=== PATIENT | female | born 1985 | race Caucasian/White ===

== ENCOUNTER 2023-04-21 01:29 | Emergency (ER) | payer OTHER, SELFPAY ==
[2023-04-21] VITALS (30 sets, daily range): BP systolic 87–138; BP diastolic 54–95; PULSE 44–81; RESP 11–25; TEMP 36.3–37; O2SAT 97–100
--- NOTE | ~2023-04-21 | XR_ITS ---
EXAMINATION: XR chest 1V portable DATE: 04/21/2023 08:36 INDICATION: Overdose of beta blockers. TECHNIQUE: A single frontal view of the chest was obtained. COMPARISON: Chest 2 views 06/24/2011 FINDINGS: There is no pneumonia, pleural effusion, or pneumothorax. The heart size is normal. IMPRESSION: 1. No acute cardiopulmonary disease. Reviewed, dictated and finalized at location E. UETTE OPERATOR
--- NOTE | 2023-04-21 01:33 | ECG_ITS ---
Measurements Intervals [place] Rate: 66 P: 52 AL: 150 QRS: 49 QRSD: 90 T: 36 QT: 412 QTc: 432 Interpretive Statements SINUS RHYTHM NORMAL ECG NO PREVIOUS ECG AVAILABLE FOR COMPARISON Electronically Signed On 04-21-2023 6:40:52 PROCESS STEWARD by Leonid Garcia D.O.
--- NOTE | 2023-04-21 01:33 | ED.PSYCH ---
HPI - Psych General Chief Complaint: Overdose Stated Complaint: overdose Time Seen by Provider: 04/21/23 01:32 Source: patient Mode of arrival: ambulatory Limitations: no limitations History of Present Illness HPI Narrative: 37-year-old female with a history of depression overdosed on an unknown amount of propanolol 20 mg 40 minutes ago. She stated that she took a handful of the pills. She does not have any other co ingestants. The patient has been asymptomatic. After taking the medications the patient's mother called EMS who brought her to the ER. MD complaint: suicidal ideation and feels depressed Onset (ago): minute(s) ( 40 minutes ago) Associated psychiatric symptoms: depression Associated symptoms: denies other symptoms Treatments prior to arrival: none Related Data Home Medications Medication Instructions Recorded Confirmed propranolol 20 mg tablet 20 mg PO TID 04/21/23 04/21/23 Allergies Allergy/AdvReac Type Severity Reaction Status Date / Time No Known Allergies Allergy Unverified 07/08/14 21:03 Exam Const: General: no acute distress Orientation/consciousness: patient oriented x3 Limitations: no limitations HENMT: Head: normal to inspection Ears: external ears normal Face/Nose/Sinus: Normal external nose present Face and sinus: normal facial exam Mouth: Yes Normal oral and palatal mucosa present Throat: posterior oropharynx normal Eyes: Conjunctivae: conjunctivae normal Pupils: Equal, round and reactive pupils present EOM: EOMs intact bilaterally Direct Ophthalmoscopy: no photophobia Neck: Neck: normal visual inspection, no lymphadenopathy and no meningeal signs Chest: Chest palpation & inspection: normal inspection of the chest Resp: Effort & Inspection: normal respiratory effort Auscultation: clear to auscultation bilaterally Cardio: Rate: regular rate Rhythm: regular rhythm GI: GI Palp: Yes Soft to palpation Auscultation: normal bowel sounds : General: Yes no CVA tenderness Back/Spine/Pelvis: Back: no CVA tenderness Skin: General skin exam: normal color Rashes: no rashes Wounds: no wounds Neuro: General: patient oriented x3, moves all extremities, no meningeal signs, no focal motor deficits and CN's II-XI intact bilaterally Cranial nerves: Yes Nystagmus not present Speech: normal speech Extrem: General: normal to inspection, no clubbing, cyanosis or edema and no pedal edema Psych: Mental Status: mental status grossly normal Affect: normal affect Attitude: cooperative Course Course Emergency Course: propanolol overdosage- Patient is asymptomatic. Heart rate is 59. Blood pressure is stable. QRS duration is 90 milliseconds. initial blood sugar 108. Called poison Control case [id number] marijuana use/ amphetamine abuse discussed with poison control. If the patient stays stable( normal blood pressure and heart rate greater than 50) can clear her medically after 6 hours. The patient was noted to be restless for which we prescribed 0.5 mg of Xanax. Throughout the night the patient has had stable heart rate and blood pressure repeat blood work was noted to be unremarkable. The repeat EKG revealed a heart rate of 51. With a QRS of 76 and a QTC corrected of 410. patient is medically cleared for psych evaluation Vital Signs Vital signs: Vital Signs Temperature 36.4 C 04/21/23 01:29 Pulse Rate 64 04/21/23 01:29 Respiratory Rate 12 04/21/23 01:29 Blood Pressure 130/93 H 04/21/23 01:29 Pulse Oximetry 100 04/21/23 01:29 Oxygen Delivery Room Air 04/21/23 01:29 Temperature 36.4 C 04/21/23 01:29 Pulse Rate 57 L 04/21/23 06:33 Respiratory Rate 18 04/21/23 06:33 Blood Pressure 92/62 L 04/21/23 06:33 Pulse Oximetry 99 04/21/23 06:33 Oxygen Delivery Room Air 04/21/23 06:33 MDM - Psych MDM Narrative Medical decision making narrative: propanolol overdose amphetamine abuse suicidal overdose Differential Diagnosis
[2023-04-21 01:45] LABS: Glucose Point of Care 108 mg/dl (65-105)
[2023-04-21 01:53] LABS: Basophils Absolute Auto 0.03 K/mm3 (0.00-0.10); Basophils Percent Auto 0.3 % (0.0-1.0); Eosinophils Absolute Auto 0.07 K/mm3 (0.02-0.50); Eosinophils Percent Auto 0.7 % (1.0-6.0); Hematocrit 37.9 % (35.0-49.0); Hemoglobin 12.9 g/dL (12.0-15.0); Immature Granulocyte Absolute 0.03 K/mm3 (0.00-0.00); Immature Granulocyte Percent A 0.3 % (0.0-0.0); Lymphocytes Absolute Auto 4.02 K/mm3 (1.10-4.50); Mean Corpuscular Hemoglobin 30.2 pg (27.0-31.0); Mean Corpuscular Volume 88.8 fL (78.0-102.0); Mean Platelet Volume 10.5 fl (9.2-11.8); Monocytes Absolute Auto 0.69 K/mm3 (0.10-0.90); Monocytes Percent Auto 6.5 % (2.0-11.0); Neutrophils Absolute Auto 5.7 K/mm3 (1.7-7.2); Neutrophils Percent Auto 54.2 % (50.0-70.0); Platelet Count Result 319 K/mm3 (150-420); Red Blood Count 4.27 M/mm3 (4.20-5.40); White Blood Count 10.6 K/mm3 (4.8-10.8)
[2023-04-21 02:01] LABS: Appearance Urine Clear (Clear); Bilirubin Urine 1+ (Negative); Blood Urine 1+ (Negative); Color Urine Yellow (Yellow); Glucose Urine UA Negative (Negative); Ketones Urine 2+ (Negative); Leukocyte Esterase Ur Trace LEU/UL (Negative); Nitrate Urine Negative (Negative); Protein Urine Trace (Negative); Specific Grav Ur >= 1.030 (1.010-1.020); Urobilinogen Urine 0.2 mg/dL (0.2-1.0); pH Urine 6.5 (5.0-8.0)
[2023-04-21 02:05] LABS: Pregnancy On Board Control Positive; Urine Pregnancy Test Negative
[2023-04-21 02:09] LABS: Add Urine Microscopic? YES; RBC Urine 0-2 /hpf (0-2); Squamous Epithelial Cell Urine Many /hpf (Few)
[2023-04-21 02:10] LABS: Amorphous Sediment Urine Moderate; Amphetamine Screen Urine Positive (Negative); Bacteria Urine 1+ /hpf; Barbiturate Screen Urine Negative (Negative); Benzodiazepines Screen Urine Negative (Negative); Cannabinoid Screen Urine Positive (Negative); Cocaine Screen Urine Negative (Negative); Methadone Screen Urine Negative (Negative); Mucus Urine Few /lpf; Opiate Screen Urine Negative (Negative); Phencyclidine Screen Urine Negative (Negative)
[2023-04-21] MEDS: CHARCOAL ACTIVATED LIQUID 25 GM/120 ML BOTTLE 50 GM PO (02:15)
[2023-04-21 02:22] LABS: Alanine Aminotransferase 19 U/L (14-59); Albumin Level 3.7 g/dL (3.4-5.0); Alkaline Phosphatase 50 U/L (46-116); Anion Gap 12 mmol/L (8-16); Aspartate Amino Transferase < 10 U/L (15-37); Bilirubin,Total 0.4 mg/dL (0.00-1.00); Blood Urea Nitrogen 9 mg/dL (7-18); Calcium 8.7 mg/dL (8.5-10.1); Carbon Dioxide 26 mmol/L (21-32); Chloride 98 mmol/L (98-108); Estimated CRCL calculation 99 ml/min; Estimated Glomerular Filt Rate > 60; Ethanol < 3 mg/dL (0-6); Glucose 125 mg/dL (70-99); Osmolality Calculated 281 mOsm/kg (285-295); Potassium 3.5 mmol/L (3.5-5.1); Salicylate 1.2 mg/dL (2.8-20.0); Sodium 136 mmol/L (136-145); Thyroid Stimulating Hormone 2.15 uIU/mL (0.36-3.74); Total Protein 7.1 g/dL (6.4-8.2)
--- NOTE | 2023-04-21 02:22 | PC.NURSE ---
Poison Control contacted by Dr Clemons, orders received. Pt monitored closely c sitter at bedside.
[2023-04-21 02:23] LABS: Acetaminophen < 2 ug/mL (10-30)
[2023-04-21 02:31] LABS: SARS-CoV-2 RNA PCR Negative (Negative)
[2023-04-21 02:32] LABS: Influenza A QL RT-PCR Negative (Negative); Influenza B QL RT-PCR Negative (Negative); RSV RNA, RT-PCR Negative (Negative)
--- NOTE | 2023-04-21 02:35 | PC.NURSE ---
ERp spoke c PC again and POC to monitor for 6 hrs. If pt remains hemodynamically stable, she can be cleared and have psych evaluation and workup c [facility]. Pt is jittery and up and down in bed at this time. Sitter at bedside, continuing to monitor.
[2023-04-21] MEDS: DEXTROSE 5%/LACTATED RINGERS 1,000 ML 100 ML IV CONT (02:45)
--- NOTE | 2023-04-21 02:55 | PC.NURSE ---
Pt is anxious and up and down in and out of bed, marching bedside and then standing up in bed. She is stating her legs are hurting and cramping. Pt is redirected and asked to stay in bed, she will folloow commands but states her legs are hurting. Dr Clemons contacted and order obtained for Xanax for pt.
[2023-04-21] MEDS: ALPRAZolam (*CRX) 0.5 MG TABLET PO (03:01)
--- NOTE | 2023-04-21 03:53 | PC.NURSE ---
Pt has calmed down at this time, Pt assisted to lying in bed and blanket given. Continuing to monitor, VSS at this time. Sitter at bedside.
--- NOTE | 2023-04-21 04:10 | PC.NURSE ---
Pt sleeping, SBrady on monitor, VSS. RR even and nonlabored, continuing to monitor, sitter at bedside.
--- NOTE | 2023-04-21 05:30 | PC.NURSE ---
Pt continues sleeping, VSS, monitor Sbrady, RR even and nonlabored, pt awakens to stimuli, Sitter at bedside.
[2023-04-21 05:57] LABS: Anion Gap 10 mmol/L (8-16); Blood Urea Nitrogen 7 mg/dL (7-18); Calcium 9.2 mg/dL (8.5-10.1); Carbon Dioxide 27 mmol/L (21-32); Chloride 99 mmol/L (98-108); Estimated CRCL calculation 105 ml/min; Estimated Glomerular Filt Rate > 60; Glucose 143 mg/dL (70-99); Magnesium 1.9 mg/dL (1.8-2.4); Osmolality Calculated 282 mOsm/kg (285-295); Potassium 3.6 mmol/L (3.5-5.1); Sodium 136 mmol/L (136-145)
[2023-04-21 06:14] LABS: Troponin I < 4.0 ng/L (0.00-60.4)
--- NOTE | 2023-04-21 06:25 | PC.NURSE ---
Pt sleeping, awakens easily, IVF continue to infuse, VSS. Sitter at bedside.
--- NOTE | 2023-04-21 06:53 | ECG_ITS ---
Measurements Intervals [place] Rate: 51 P: 56 IL: 132 QRS: 62 QRSD: 76 T: 36 QT: 431 QTc: 400 Interpretive Statements SINUS BRADYCARDIA WITH SINUS ARRHYTHMIA NONSPECIFIC T-WAVE ABNORMALITY- DIFFUSE LEADS BASELINE ARTIFACT- I, II, III, AVR, AVL, AVF BORDERLINE ECG COMPARED TO ECG 04/21/2023 01:44:35 SINUS BRADYCARDIA NOW PRESENT SINUS ARRHYTHMIA NOW PRESENT T-WAVE ABNORMALITY NOW PRESENT Electronically Signed On 04-21-2023 8:40:15 MANUFACTURE SPECIALIST by Leonid Garcia D.O.
--- NOTE | 2023-04-21 07:00 | PC.NURSE ---
Pt is to be medically cleared for psychiatric evaluation. Pts fluids dc'd and monitor dc'd.
--- NOTE | 2023-04-21 07:01 | PC.NURSE ---
Report given to Omer Kee
[2023-04-21] MEDS: NITROFURANTOIN MONOHYD MACROCR 100 MG CAP PO (08:10)
--- NOTE | 2023-04-21 08:50 | PC.NURSE ---
0715 pt pacing in room, declined breakfast, drink given 0800 pt pacing 0845 pt pacing in room, feeling jittery. declines needs at this time. awaiting [place] arrival
--- NOTE | 2023-04-21 11:03 | PC.NURSE ---
per recommendation of [facility] staff Morenita. call placed to [facility] to report pt statement regarding overdosing ex boyfriend to cause a . call placed and spoke with deputy brito, overdose on methadone per autopsy, dosing was already investigated. dosing did not lead to his . no further action is needed.
--- NOTE | 2023-04-21 11:15 | PC.NURSE ---
1030 pt pacing in room 1105 pt laying down per cot in room
--- NOTE | 2023-04-21 11:40 | PC.NURSE ---
0823 update to [facility], regarding pt 1141 call to [facility] to get case #, per request of Morenita for transfer.
--- NOTE | 2023-04-21 12:14 | PC.NURSE ---
meal tray provided , pt to be transferred to psych facility for eval under INVOLUNTARY services. awaiting placement.
--- NOTE | 2023-04-21 13:26 | PC.NURSE ---
pt sleeping in bedside chair.
== END 2023-04-21 15:41 ==
PROVIDERS: Internal Medicine Critical Care Medicine; Emergency Provider Emergency Medicine; PCP Surgery
DX: F32.A Depression, unspecified (principal); T44.7X2A Poisoning by beta-adrenoreceptor antagonists, intentional self-harm, initial encounter; Z20.822 Contact with and (suspected) exposure to COVID-19
CPT/HCPCS: 36415; 71045; 80048; 80053; 80307; 81001; 81025; 82948; 83605; 83735; 84443; 84484; 85025; 87637; 93005; 99285; A9270; J7121

== ENCOUNTER 2024-12-13 21:11 | Emergency (ER) | payer OTHER, SELFPAY ==
--- NOTE | ~2024-12-13 | XR_ITS ---
XR tibia fibula LT 2V 12/13/2024 21:39 INDICATION: Status post fall 2 weeks ago. Leg pain. PROCEDURE: 2 views left tibia/fibula COMPARISON: No prior studies for comparison. FINDINGS: Fracture, dislocation or subluxation is not identified. The soft tissues appear within normal limits. No foreign bodies are identified. IMPRESSION: 1: NO ACUTE BONE OR JOINT ABNORMALITY IDENTIFIED. Reviewed, dictated and finalized at location O.
--- OUTSIDE RECORDS SUMMARY | 2024-12-13 21:15 | XMS_ITS | Patient Health Record ---
Author Organization [facility] Address [address] [place] [address] Support Name Relationship Address Phone Cori Vásquez Guarantor Unknown [phone] Reason For Referral No Information Medications Medication SIG (Take, Route, Fr equency, Duration) Notes Start Date End Date Status Ativan 4 MG/ML Intracardiac ([facility]) Active Plan Of Treatment No Information Insurance Providers Payer Name Payer Address Payer Phone Subscriber Number Group Number Insured Name Patient Relationship to Insured Coverage Start Date [facility]age End Date [facility] [address] [place] [address] [id number] Cori Vásquez Self - patient is the insured
--- OUTSIDE RECORDS SUMMARY | 2024-12-13 21:15 | XMS_ITS | Clinical Summary ---
Author Organization [facility] Address [facility] [place] [address] Care Team Providers Care Helix Coil Winder Name Role Phone Eladio Andrade MD Primary Care Provider Allergies No known active allergies Medications ARIPiprazole (ABILIFY) 5 MG tablet Take 1 tablet (5 mg total) by mouth daily. 05/06/2023 Active buPROPion XL (WELLBUTRIN XL) 150 MG 24 hr tablet Take 1 tablet (150 mg total) by mouth every morning. 05/13/2023 Active propranolol (INDERAL) 10 MG tablet Take 1 tablet (10 mg total) by mouth 3 (three) times daily. 05/06/2023 Active propranolol (INDERAL) 20 MG tablet Take 1 tablet (20 mg total) by mouth 3 (three) times daily. 05/13/2023 Active Active Problems Problem Noted Date Diagnosed Date Suboxone maintenance treatme nt complicating , antepartum, third trimester ([facility]) 12/23/2019 Overview (12/23/2019): Buprenorphine naloxone 8-2 daily by prescriber at [facility] Prolonged latent phase of labor ([facility]) 2019 Encounter for elective induction of labor ([facility]) 12/21/2019 Term ([facility]) 12/21/2019 Overview (12/21/2019): Maternal request for elective induction at term. Foreign body (FB) in soft tissue 12/15/2018 Overview (12/15/2018): Added automatically from request for surgery [id number] Encounters Date Type Department Care Team Description 11/20/2024 10:52 AM CDT - 11/20/2024 11:59 PM CDT Hospital Encounter [place] [facility] [address] [place] [address] Jesús Mahajan, PA Discharge Disposition: Home or Self Care (Routine Discharge) 11/20/2024 Travel from Last 3 Months Immunizations Immunization Administration Dates Next Due Fluzone 6 Months+ Quad (0.5 mL Prefilled Syringe ) 12/23/2019 MMR (MMRII) 12/23/2019 Family History Medical History Relation Comments No Known Problems Brother 1 No Known Problems Brother 2 No Known Problems Father Diabetes Mother Heart Disease Mother Hypertension Mother Stroke Mother No Known Problems Sister Relation Status Comments Brother 1 Brother 2 Father Mother Sister Social History Tobacco Use Types Packs/Day Years Used Date Smoking Tobacco: Every Day Cigarettes 0.3 14 Smokeless Tobacco: Never Tobacco Cessation:Ready to Q uit: Not Asked; Counseling Given: Not Answered Alcohol Use Standard Drinks/Week Comments Not Currently 0 (1 standard drink = 0.6 oz pur e alcohol) unknown Comments No Sex and Gender Information Value Date Recorded Sex Assigned at Female 06/06/2024 10:19 AM PLAYGROUND ATTENDANT Legal Sex Female 5:44 PM PLAYGROUND ATTENDANT Gender Identity Not on file Sexual Orientation Not on file Last Filed Vital Signs Vital Sign Reading Time Taken Comments Blood Pressure 143/96 05/17/2023 3:59 PM PLAYGROUND ATTENDANT Pulse 116 05/17/2023 3:59 PM PLAYGROUND ATTENDANT Temperature 36.9 C (98.4 F) 05/17/2023 3:59 PM PLAYGROUND ATTENDANT Respiratory Rate 18 05/17/2023 3:59 PM PLAYGROUND ATTENDANT Oxygen Saturation 96% 05/17/2023 3:59 PM PLAYGROUND ATTENDANT Inhaled Oxygen Concentration - - Weight 68.4 kg (150 lb 12.7 oz) 05/17/2023 3:59 PM PLAYGROUND ATTENDANT Height 165.1 cm (5' 5) 05/17/2023 3:59 PM PLAYGROUND ATTENDANT Body Mass Index 25.09 05/17/2023 3:59 PM PLAYGROUND ATTENDANT Plan of Treatment Health Maintenance Due Date Last Done Comments Cervical Cancer Screening Pap Smear (Age 30 to 64) Every 3 Years 1987 Annual Physical 08/15/1990 DTaP, Tdap and Td Vaccines (2 - Tdap) 10/12/1999 10/11/1999, 09/12/1989, 02/19/1988, Additional history exists Hepatitis B Vaccines (1 of 3 - 19+ 3-dose series) 08/15/2006 Pneumococcal Vaccine: Pediatrics (0 to 5 Years) and At-Risk Patients (6 to 49 Years) (1 of 2 - PCV) 08/15/2006 HPV Vaccines (1 - 3-dose SCDM series) 08/15/2014 Cervical Cancer Screening Pap with HPV Testing (Age 30 to 64) Every 5 Years 08/15/2017 Cervical Cancer Screening with HPV 08/15/2017 COVID-19 Vaccine ( season) 2024 Hepatitis C Completed 12/03/2016 Meningococcal B Vaccine Aged Out No l onger eligible based on patient's age to complete this topic Meningococcal Vaccine Aged Out No martha giovani eligible based on patient's age to complete this topic RSV Immunizations Under 20 Months Aged Out No longer eligible based on patient's age to complete this topic Procedures Procedure Name Priority Date/Time Associated Diagnosis Comments US BLADDER Routine 11/20/2024 12:23 PM CDT Urinary hesitancy XR HIP LT 2V Routine 11/20/2024 11:19 AM CDT Left hip pain HEPATITIS C ANTIBODY Routine 12/03/2016 2:44 PM CDT from Last 3 Months or Most Recently Relevant to Health Maintenance Results * US BLADDER (11/20/2024 12:23 PM CDT) Anatomical Region Laterality Modality Renal Ultrasound 11/20/2024 2:51 PM CDT Impressions 11/20/2024 4:30 PM CDT IMPRESSION: 1. Normal sonographic appearance of the urinary bladder. 2. Postvoid residual volume, as above. Dictated By: Vitaly Barbosa DO on 11/20/2024 2:51 PM The attending radiologist has reviewed the image(s) and agrees with the content of this report. Ordered By: JESÚS MAHAJAN Interpreted By: Vitaly Barbosa DO, 11/20/2024 2:51 PM Narrative 11/20/2024 4:30 PM CDT [address] [place] [address] Examination: US BLADDER Exam time: 11/20/2024 12:22 PM Clinical history: Urinary hesitancy. Comparison: CT abdomen and pelvis without contrast 12/05/2016. Technique: Sonographic evaluation of the retroperitoneum, including both kidneys and the urinary bladder, was performed utilizing grayscale and color Doppler technique. Findings: The prevoid urinary bladder measures approximately 6.5 x 4.7 x 5.1 cm. There is no focal or diffuse urinary bladder wall thickening. No intraluminal mass is identified. Ureteral jets were visualized. Limited visualization of the uterus and adnexa is unremarkable. Prevoid volume: 145 mL Postvoid volume: 3 mL Procedure Note Jac Manrique MD - 11/20/[address] [place] [address] Examination: US BLADDER Exam time: 11/20/2024 12:22 PM Clinical history: Urinary hesitancy. Comparison: CT abdomen and pelvis without contrast 12/05/2016. Technique: Sonographic evaluation of the retroperitoneum, including bothkidneys and the urinary bladder, was performed utilizing grayscale andcolor Doppler technique. Findings: The prevoid urinary bladder measures approximately 6.5 x 4.7 x 5.1 cm.There is no focal or diffuse urinary bladder wall thickening. Nointraluminal mass is identified. Ureteral jets were visualized. Limitedvisualization of the uterus and adnexa is unremarkable. Prevoid volume: 145 mL Postvoid volume: 3 mL IMPRESSION: 1. Normal sonographic appearance of the urinary bladder. 2. Postvoid residual volume, as above. Dictated By: Vitaly Barbosa DO on 11/20/2024 2:51 PM The attending radiologist has reviewed the image(s) and agrees with thecontent of this report. Ordered By: JESÚS MAHAJAN Interpreted By: Vitaly Barbosa DO, 11/20/2024 2:51 PM Jes[facility]s [facility] ULTRASOUND Final Result * XR HIP LT 2V (11/20/2024 11:19 AM CDT) Anatomical Region Laterality Modality Hip Radiographic Iavnia ging 11/20/2024 12:2 2 PM CDT Impressions 11/20/2024 12:23 PM CDT IMPRESSION: No acute findings. Ordered By: JESÚS MAHAJAN Interpreted By: Norman Dillon MD, 11/20/2024 12:22 PM Narrative 11/20/2024 12:23 PM CDT [address] [place] [address] Examination: Left hip. Exam time: 1055 hours. Clinical history: Chronic pain worsening recently. Comparison: None. Technique: Two weightbearing views. Findings: No fracture, dislocation or other acute bony abnormality is identified. No other significant bone or joint abnormality is noted.Surgical clips in the pelvis noted. The soft tissues are otherwise unremarkable. Procedure Note Norman Dillon MD - 11/20/[address] [place] [address] Examination: Left hip. Exam time: 1055 hours. Clinical history: Chronic pain worsening recently. Comparison: None. Technique: Two weightbearing views. Findings: No fracture, dislocation or other acute bony abnormality isidentified. No other significant bone or joint abnormality isnoted.Surgical clips in the pelvis noted. The soft tissues are otherwiseunremarkable. IMPRESSION: No acute findings. Ordered By: JESÚS MAHAJAN Interpreted By: Norman Dillon MD, 11/20/2024 12:22 PM Jes[facility] GENERAL IMAGING Final Result * HEPATITIS C ANTIBODY (12/03/2016 2:44 PM CDT) HEPATITIS C AB NON-REACTI VE NON-REACT LAUREL 12/06/2016 9:23 AM CDT [facility] Comment: ANTIBODIES TO HCV NOT DETECTED. DOES NOT EXCLUDE THE POSSIBILITY OF EXPOSURE TO HCV. SERUM OR PLASMA SPECIMEN / Unknown 12/03/2016 2:44 PM CDT 12/03/2016 2:46 PM CDT us Generic Conversion Md [facility] Final R esult [facility] [address] [place] [address], [id number] from Last 3 Months or Most Recently Relevant to Health Maintenance Insurance HOOKS Advance Directives * Full Code (Latest Code Status on File) Date Activated Date Inactivated Comments 12/21/2019 8:50 AM 12/23/2019 3:22 PM Care Teams Helix Coil Winder Relationship Specialty Start Date End Date Eladio Andrade MD [address] [place] [address] [place] [id number] PCP - General FAMILY PRACTICE 12/18/19
--- OUTSIDE RECORDS SUMMARY | 2024-12-13 21:15 | XMS_ITS | Encounter Summary ---
Author Organization [facility] Address [address] [place] [id number] Care Team Providers Care Life Advisor Name Role Phone Catarina Moreau Primary Care Provider [phone] Eladio Andrade MD Primary Care Provider [phone] Encounter Details Date Type Department Care Team (Late st Contact Info) Description 09/09/2018 Abstract [facility] CONVERSION [address] [place] [address] , Generic Conversion, Social History Tobacco Use Types Packs/Day Years Used Date Smoking Tobacco: Never Assessed Comments Unknown Sex and Gender Information Value Date Recorded Sex Assigned at Female 06/06/2024 10:19 AM DRYERMAN/WOMAN Legal Sex Female 5:44 PM DRYERMAN/WOMAN Gender Identity Not on file Sexual Orientation Not on file documented as of this encounter Plan of Treatment Not on file documented as of this encounter Visit Diagnoses Not on filedocumented in this encounter Additional Health Concerns Infection Onset Date Last Indicated Resolved Time COVID-19 Rule Out 12/18/2019 12/18/2019 12/19/2019 5:45 PM CDT COVID-19 Rule Out 07/25/2020 07/25/2020 07/26/2020 8:40 PM CDT COVID-19 Rule Out 01/13/2023 01/13/2023 01/13/2023 2:37 PM CDT COVID-19 Rule Out 01/13/2023 01/13/2023 01/14/2023 6:43 PM CDT documented as of this encounter Care Teams Life Advisor Relationship Specialty Start Date End Date Catarina Moreau PA [address] [place] [address] PCP - General PHYSICIAN LIME BOILER 12/12/18 12/17/19 Eladio Andrade MD [address] [place] [id number] PCP - General FAMILY PRACTICE 12/18/19 documented as of this encounter
[2024-12-13 21:16] VITALS: BP 120/66; PULSE 95; RESP 18; TEMP 36.7; O2SAT 100
--- NOTE | 2024-12-13 21:45 | ED.LOWEXIN ---
HPI - Extremity Injury (Lower) General Chief Complaint: Extremity Injury, Lower Stated Complaint: left leg injury Time Seen by Provider: 12/13/24 21:29 Source: patient and family Mode of arrival: ambulatory Limitations: no limitations History of Present Illness HPI Narrative: this is a 39-year-old female with no significant past medical history presents with a 4 day history of leg injury where she has hematoma and swelling to the medial aspect of her left knee with bruising currently no pain no calf tenderness no calf swelling has a brisk pedal pulse on the left has good range of motion no numbness or tingling no other injuries noted. complaint: knee injury and leg injury Onset (ago): day(s) Injury: Left: knee ( Medial swelling) Type of Injury: blunt Place: street/outdoors Severity: mild Relieving factors: NSAID Context: direct blow Related Data Home Medications ?Medication ?Instructions ?Recorded ?Confirmed ?Last Taken ?Type propranolol 20 mg tablet 20 mg PO TID 04/21/23 04/21/23 Unknown History Allergies Allergy/AdvReac Type Severity Reaction Status Date / Time No Known Allergies Allergy Unverified 07/08/14 21:03 Review of Systems Review of Systems: All systems reviewed & are unremarkable except as noted in HPI and below PMFSH Social History Social History Substance use type: amphetamines and prescription drug Exam Const: General: healthy appearing and no acute distress Nutritional Appearance: well nourished Orientation/consciousness: patient oriented x3 Limitations: no limitations Chest: Chest palpation & inspection: normal inspection of the chest Resp: Effort & Inspection: normal respiratory effort Auscultation: clear to auscultation bilaterally Cardio: Rate: regular rate Rhythm: regular rhythm GI: GI Palp: Yes Soft to palpation Skin: General skin exam: normal color Wounds: wounds noted Other: hematoma and bruising medial aspect of her left knee and leg with no point tenderness no calf tenderness no calf swelling negative Homans sign Neuro: General: patient oriented x3 Extrem: General: edema Course Course Emergency Course: patient declined any pain medicine will apply an Juan wrap to affected left knee and x-rays performed show no acute fractures. Vital Signs Vital signs: Vital Signs Temperature 36.7 C 12/13/24 21:16 Pulse Rate 95 12/13/24 21:16 Respiratory Rate 18 12/13/24 21:16 Blood Pressure 120/66 12/13/24 21:16 Pulse Oximetry 100 12/13/24 21:16 Oxygen Delivery Room Air 12/13/24 21:16 Temperature 36.7 C 12/13/24 21:16 Pulse Rate 95 12/13/24 21:16 Respiratory Rate 18 12/13/24 21:16 Blood Pressure 120/66 12/13/24 21:16 Pulse Oximetry 100 12/13/24 21:16 Oxygen Delivery Room Air 12/13/24 21:16 Critical Care Time Critical Care Time Critical Care Time: No Discharge Plan Discharge Clinical Impression: Hematoma Patient Disposition: Home Condition: Stable Instructions: Antibiotic Form, Knee Sprain (ED), Hematoma (ED) Additional Instructions: advised patient to follow with Primary continue Juan wrap can take Tylenol as needed. Patient Language: Swedish Prescriptions: No Action propranolol 20 mg Tablet 20 mg PO TID Patient Comments: Pt takes as needed for anxiety Follow-up/Referrals: Margarette,VELASQUEZ Espinosa [Primary Care Provider] Time of Disposition: 21:49
[2024-12-13 22:20] VITALS: BP 124/76; PULSE 85; RESP 18; O2SAT 100
== END 2024-12-13 22:20 | disposition home or self-care (01) ==
PROVIDERS: Emergency Provider Emergency Medicine; PCP Physician Assistant
DX: S80.02XA Contusion of left knee, initial encounter (principal); X58.XXXA Exposure to other specified factors, initial encounter
CPT/HCPCS: 73590; 99283